=== PATIENT | male | born 1970 ===

== ENCOUNTER 2022-06-03 18:33 | Emergency (ER) | payer SELFPAY ==
[2022-06-03 19:49] VITALS: BP 130/76
[2022-06-03 20:41] LABS: HEMOGLOBIN 9.2 g/dl (14.0-17.9); MEAN CORPUSCULAR HEMOGLOBIN 25.1 PG (27.0-31.0); MEAN CORPUSCULAR HGB CONC 31.6 g/dL (33.0-36.5); WHITE BLOOD COUNT 4.5 X10'3 (4.5-11.0)
[2022-06-03 20:43] LABS: HEMATOCRIT 29.1 % (42.0-52.0); MEAN CORPUSCULAR VOLUME 79.3 FL (78-98); MEAN PLATELET VOLUME 6.9 FL (7.4-10.4); PLATELET COUNT 123 X10'3 (140-440); RED BLOOD COUNT 3.66 X10'6 (4.70-6.10)
[2022-06-03 21:05] LABS: ALANINE AMINOTRANSFERASE 30 U/L (12-78); ALBUMIN 3.2 G/DL (3.4-5.0); ALBUMIN/GLOBULIN RATIO 0.6 (1.1-1.5); ALKALINE PHOSPHATASE 153 IU/L (46-116); AMYLASE 57 U/L (25-115); ANION GAP 9 (8-16); ASPARTATE AMINO TRANSFERASE 62 U/L (10-37); BILIRUBIN,TOTAL 1.5 MG/DL (0.1-1.0); BLOOD UREA NITROGEN 7 MG/DL (7-18); BUN/CREATININE RATIO 7.4 (5.4-32.0); CALCIUM 8.8 MG/DL (8.5-10.1); CHLORIDE 108 MMOL/L (99-107); CREATININE 0.95 MG/DL (0.60-1.10); GLUCOSE 104 MG/DL (70-104); LIPASE 218 U/L (73-393); POTASSIUM 3.5 MMOL/L (3.5-5.1); SODIUM 143 MMOL/L (135-145); TOTAL PROTEIN 8.9 G/DL (6.4-8.2); eGFR 83 ML/MIN
[2022-06-03 21:19] LABS: ANISOCYTOSIS 2+; MICROCYTOSIS 1+; PLATELET ESTIMATE DECREASED; TOTAL CELLS COUNTED 100
[2022-06-03 21:20] LABS: TARGET CELLS FEW; TEAR DROP CELLS 1+
[2022-06-03 21:21] LABS: POIKILOCYTOSIS 1+; SCHISTOCYTES FEW; TOXIC GRANULATION 1+; TOXIC VACUOLATION FEW
[2022-06-03 21:22] LABS: ETHANOL 0.377 GM/DL (0.0-0.010)
== END 2022-06-03 22:46 | disposition left against medical advice (07) ==
LOC: ER 18:34
DX: R10.9 Unspecified abdominal pain (principal); Z53.21 Procedure and treatment not carried out due to patient leaving prior to being seen by health care provider
CPT/HCPCS: 80053; 80320; 82140; 82150; 83690; 85007; 85025